=== PATIENT | female | born 1960 | race Caucasian/White ===

== ENCOUNTER → 2016-11-20 | Outpatient (CLI) | payer OTHER ==
[2016-08-27 13:26] VITALS: BP 116/70
[~2016-11-20] MED LIST: ASPI-482 PO; BIOT1CAP3 PO; BYSTOLIC10 MG PO; BYSTOLIC2.5 MG PO; IOHEXOL 350 MG/ML 100ML VIAL. IV ONE; LISI10TA2 PO; LISI2.5T PO; OMEG500C PO; PRED-220 PO; PROAIR HFA8.5 GM INH
--- NOTE | 2016-11-20 10:47 | RAD ---
Indication abdominal pain. Consider SMA syndrome. CTA targeted to the abdominal aorta and its major branches was performed. Images were reformatted in the coronal and sagittal planes. Volume rendered images were also generated and reviewed. An acute finding at either lung base is not seen. There is some scarring at the left lung base. There is a small, approximately 2 mm, pulmonary nodule peripherally in the left lower lobe, image 14 series 3. Follow-up imaging, along the lines of the Fleischner criteria, should be considered. There is some fatty infiltration of the liver. A focal mass lesion in the liver is not seen. The spleen appears unremarkable. The pancreas appears normal. No adrenal or renal anomalies are seen. There are air fluid collections in the right lower quadrant that are not clearly in bowel and are suggestive of small abscesses. One fluid collection, immediately behind the rectus muscle, is almost certainly not in a bowel loop and is compatible with a small abscess. (Findings secondary to ruptured appendix accounting for the appearance is not excluded). There is, additionally, significant dilatation and stool in distal loops of small bowel (small bowel feces sign) compatible with incidental inspissated stool in the small bowel. There is, additionally, some suggested thickening of small bowel loops in the right lower quadrant suggesting superimposed enteritis. Significant dilatation of the duodenal sweep, prior to traversing the aortic SMA junction as might be expected with an SMA syndrome is not seen. On the lateral images the angle between the abdominal aorta and the origination of the superior mesenteric artery off the aorta is not particularly narrowed. The distance between the aorta and SMA, at the level of the duodenum is borderline normal. The overall appearance is not suggestive of SMA syndrome. There is no significant narrowing at the origin of the celiac or SMA. Intestinal ischemia is not suggested on this exam. Dr. Elizalde was notified of the findings at 10:45 AM, IMPRESSION: Probable abscesses in the right lower quadrant. The sequela of ruptured appendicitis could account for the appearance. There is inspissated bowel within distal small bowel loops which are moderately dilated. A component of at least partial mechanical small bowel obstruction is thought likely. Finally superimposed associated enteritis in distal small bowel loops is suspect.. A follow-up examination, after opacification of all bowel loops with GI contrast would be useful to confirm this initial impression. Definite findings suggesting SMA syndrome are not seen Small pulmonary nodule in the left lower lobe. Follow-up imaging, along the lines of the Fleischner criteria, should be considered PQRS Compliance Statement: One or more of the following individualized dose reduction techniques were utilized for this examination: 1. Automated exposure control 2. Adjustment of the mA and/or kV according to patient size 3. Use of iterative reconstruction technique
== END | disposition home or self-care (01) ==
LOC: CT 06:49
PROVIDERS: ATTEND Surgery Vascular Surgery
DX: R10.84 Generalized abdominal pain (principal); R91.1 Solitary pulmonary nodule
CPT/HCPCS: 74174

== ENCOUNTER 2018-01-23 08:20 | Inpatient (IN) | payer OTHER ==
[2018-01-23 09:21] LABS: AMPHETAMINE/METHAMPHETAMINE NEG (NEG); BARBITURATES NEG (NEG); BENZODIAZEPINES NEG (NEG); CANNABINOIDS NEG (NEG); COCAINE NEG (NEG); METHADONE NEG (NEG); OPIATES NEG (NEG); PHENCYCLIDINE NEG (NEG)
[2018-01-23 09:28] LABS: ADD MAN DIFF? NO
[2018-01-23] MEDS ORDERED: fentaNYL PF VIAL 100 MCG/2 ML VIAL ×2 (09:32→12:52)
[2018-01-23 09:37] LABS: BASO % 0 % (0-3); EOS % 0 % (0-3); HEMOGLOBIN 11.4 g/dL (12.0-15.5); LYMPH # 0.9 x10^3/uL (1.0-4.8); LYMPH % 11 % (24-48); MEAN CORPUSCULAR HEMOGLOBIN 37 pg (25-35); MEAN CORPUSCULAR HGB CONC 35 g/dL (31-37); MEAN CORPUSCULAR VOLUME 107 fL (79-100); MONO # 0.6 x10^3/uL (0.0-1.1); MONO % 8 % (0-9); NEUT # 6.6 x10^3uL (1.8-7.7); NEUT % 81 % (31-73); PLATELET COUNT 173 x10^3/uL (140-400); RED BLOOD COUNT 3.08 x10^6/uL (3.50-5.40); RED CELL DISTRIBUTION WIDTH 14.9 % (11.5-14.5); WHITE BLOOD COUNT 8.2 x10^3/uL (4.0-11.0)
[2018-01-23] MEDS: fentaNYL PF VIAL 100 MCG/2 ML VIAL IV ×2 (09:37→15:21)
[2018-01-23 09:38] LABS: BILIRUBIN,URINE NEGATIVE (NEG); CLARITY,URINE CLEAR; COLOR,URINE YELLOW; GLUCOSE,URINE NEGATIVE (NEG); NITRITE,URINE NEGATIVE (NEG); PH,URINE 5.5; PROTEIN,URINE NEGATIVE (NEG-TRACE); UROBILINOGEN,URINE 0.2 mg/dL (0.2 mg/dL)
[2018-01-23 09:54] LABS: ETHANOL 133 mg/dL (0-10); TROPONINI < 0.017 ng/mL (0.000-0.055)
[2018-01-23 09:56] LABS: THYROID STIM HORMONE (TSH) 1.657 uIU/mL (0.358-3.74)
[2018-01-23 10:01] LABS: BACTERIA,URINE FEW /HPF (0-FEW); RBC,URINE RARE /HPF (0-2); SQUAMOUS EPITHELIAL CELL,UR FEW /LPF; WBC,URINE RARE /HPF (0-4)
[2018-01-23 10:06] LABS: CKMB INDEX 0.3 % (0-4); CKMB MASS 1.8 ng/mL (0.0-3.6); CREATINE KINASE 687 U/L (26-192)
[2018-01-23 10:06] LABS: NT-PRO BNP 349 pg/mL (0-124)
[2018-01-23 10:15] LABS: ANION GAP 17 (6-14); BLOOD UREA NITROGEN 8 mg/dL (7-20); CALCIUM 8.5 mg/dL (8.5-10.1); CARBON DIOXIDE 21 mmol/L (21-32); CHLORIDE 99 mmol/L (98-107); CREATININE 0.6 mg/dL (0.6-1.0); GFR 102.3; GLUCOSE 105 mg/dL (70-99); POTASSIUM 4.3 mmol/L (3.5-5.1); SODIUM 137 mmol/L (136-145)
[2018-01-23 10:21] LABS: ALBUMIN 3.3 g/dL (3.4-5.0); ALK PHOS 145 U/L (46-116); ALT (SGPT) 30 U/L (14-59); AST (SGOT) 36 U/L (15-37); DIRECT BILIRUBIN 0.1 mg/dL (0.0-0.2); MAGNESIUM 1.7 mg/dL (1.8-2.4); TOTAL BILIRUBIN 0.4 mg/dL (0.2-1.0); TOTAL PROTEIN 6.9 g/dL (6.4-8.2)
[2018-01-23 10:24] LABS: ETHANOL, URINE POS (NEG)
[2018-01-23] MEDS ORDERED: ONDANSETRON PF 4 MG/2 ML VIAL. IV ×3 (10:45→15:30)
[2018-01-23] MEDS ORDERED: fentaNYL PF VIAL 100 MCG/2 ML VIAL IV ×4 (10:45→15:30)
[2018-01-23] MEDS: IV DEXTROSE 5 %-0.45 % NACL 1,000 ML IV (11:26)
[2018-01-23] MEDS ORDERED: SEVOFLURANE 61 TO 120 MINUTES. IH (12:52)
[2018-01-23] MEDS ORDERED: PROPOFOL 20 ML IV (12:52)
[2018-01-23] MEDS ORDERED: DEXAMETHASONE SOD PHOS 20 MG/5 ML VIAL. (12:53)
[2018-01-23] MEDS ORDERED: FAMOTIDINE 20 MG/2 ML VIAL (12:53)
[2018-01-23] MEDS ORDERED: ONDANSETRON PF 4 MG/2 ML VIAL. (12:53)
[2018-01-23] MEDS ORDERED: PHENYLEPHRINE 10 MG/ML VIAL. (12:55)
[2018-01-23] MEDS: IV RINGERS,LACTATED 1000ML 1,000 ML IV ×2 (13:45→15:28)
[2018-01-23] MEDS ORDERED: DEXTROSE 50% 25 GM / 50ML DISP.SYRIN. IV (15:30)
[2018-01-23] MEDS ORDERED: PROCHLORPERAZINE 10 MG/2 ML VIAL. IV (15:30)
[2018-01-23] MEDS ORDERED: oxyCODONE IR 5 MG TABLET PO (15:30)
[2018-01-23] MEDS ORDERED: POLYETHYLENE GLYCOL 3350 17 GM PACKET. PO (15:30)
[2018-01-23] MEDS ORDERED: MORPHINE SULFATE 4 MG/ML DISP.SYRIN. IV ×2 (15:30)
[2018-01-23] MEDS ORDERED: HYDROcodone/APAP 7.5/325MG 1 TAB TABLET PO (15:30)
[2018-01-23] MEDS: ceFAZolin SODIUM 1 GM in IV DEXTROSE 5% 50 ML IV (15:30)
[2018-01-23] MEDS ORDERED: LIDOCAINE 1% PF 2 ML VIAL. ID (15:30)
[2018-01-23] MEDS ORDERED: MORPHINE SULFATE 2 MG/ML DISP.SYRIN. IV (15:30)
[2018-01-23] MEDS ORDERED: HALOPERIDOL LACTATE 5 MG/ML VIAL. IVP (17:30)
[2018-01-23] MEDS ORDERED: diphenhydrAMINE 50 MG/ML VIAL IVP (17:30)
[2018-01-23] MEDS ORDERED: NICOTINE POLACRILEX 2MG GUM PACKAGE of 12. BC (18:15)
[2018-01-23] MEDS ORDERED: NICOTINE 21MG PATCH. TD (18:15)
[2018-01-23] MEDS: VITAMIN B12,B9,B6 COMPLEX 1 TABLET. PO (18:47)
[2018-01-23] MEDS: SENNOSIDES/DOCUSATE 8.6/50MG TABLET. PO (18:47)
[2018-01-23] MEDS: MULTIVIT INFUSN,ADULT 4,VIT K 10 ML, THIAMINE 100 MG, FOLIC ACID 1 MG in IV RINGERS,LAC... IV (18:50)
[2018-01-23] MEDS: MAGNESIUM SULFATE 2GM 50 ML IV (18:51)
[2018-01-23] MEDS: ceFAZolin SODIUM IV Push 1 GM VIAL. IVP (18:52)
[2018-01-23] MEDS: HYDROcodone/APAP 7.5/325MG 1 TAB TABLET PO (18:58)
[2018-01-23] MEDS: APIXABAN 2.5 MG TABLET. PO (20:25)
[2018-01-23] MEDS: LORazepam 1 MG TABLET PO (21:49)
[2018-01-24] MEDS: ceFAZolin SODIUM IV Push 1 GM VIAL. IVP ×3 (01:00→08:49)
[2018-01-24] MEDS: IV RINGERS,LACTATED 1000ML 1,000 ML IV (02:20)
[2018-01-24] MEDS ORDERED: MAGNESIUM HYDROXIDE 2,400 MG/30 ML ORAL.SUSP. PO (06:00)
[2018-01-24 06:51] LABS: ADD MAN DIFF? NO
[2018-01-24 06:59] LABS: BASO % 0 % (0-3); EOS % 0 % (0-3); HEMATOCRIT 21.9 % (36.0-47.0); HEMOGLOBIN 7.7 g/dL (12.0-15.5); LYMPH # 1.6 x10^3/uL (1.0-4.8); LYMPH % 31 % (24-48); MEAN CORPUSCULAR HEMOGLOBIN 38 pg (25-35); MEAN CORPUSCULAR HGB CONC 35 g/dL (31-37); MEAN CORPUSCULAR VOLUME 107 fL (79-100); MONO # 0.7 x10^3/uL (0.0-1.1); MONO % 14 % (0-9); NEUT # 2.9 x10^3uL (1.8-7.7); NEUT % 55 % (31-73); PLATELET COUNT 116 x10^3/uL (140-400); RED BLOOD COUNT 2.04 x10^6/uL (3.50-5.40); RED CELL DISTRIBUTION WIDTH 14.7 % (11.5-14.5); WHITE BLOOD COUNT 5.2 x10^3/uL (4.0-11.0)
[2018-01-24 07:14] LABS: ALBUMIN 2.5 g/dL (3.4-5.0); ALBUMIN/GLOBULIN RATIO 0.8 (1.0-1.7); ALK PHOS 104 U/L (46-116); ALT (SGPT) 20 U/L (14-59); ANION GAP 9 (6-14); AST (SGOT) 23 U/L (15-37); BLOOD UREA NITROGEN 9 mg/dL (7-20); BUN/CREATININE RATIO 15 (6-20); CALCIUM 8.2 mg/dL (8.5-10.1); CARBON DIOXIDE 27 mmol/L (21-32); CHLORIDE 102 mmol/L (98-107); CREATININE 0.6 mg/dL (0.6-1.0); GFR 102.3; POTASSIUM 4.5 mmol/L (3.5-5.1); SODIUM 138 mmol/L (136-145); TOTAL BILIRUBIN 0.4 mg/dL (0.2-1.0); TOTAL PROTEIN 5.7 g/dL (6.4-8.2)
[2018-01-24 07:21] LABS: GLUCOSE 112 mg/dL (70-99)
[2018-01-24] MEDS: CHOLECALCIFEROL (VITAMIN D3) 5,000 UNIT CAPSULE PO (08:48)
[2018-01-24] MEDS: LORazepam 1 MG TABLET PO ×2 (08:48→20:55)
[2018-01-24] MEDS: LISINOPRIL 5 MG TABLET. PO (08:48)
[2018-01-24] MEDS: VITAMIN B12,B9,B6 COMPLEX 1 TABLET. PO (08:48)
[2018-01-24] MEDS: MULTIVITAMIN with MINERAL TABLET. PO (08:49)
[2018-01-24] MEDS: HYDROcodone/APAP 7.5/325MG 1 TAB TABLET PO ×2 (08:49→20:55)
[2018-01-24] MEDS: SENNOSIDES/DOCUSATE 8.6/50MG TABLET. PO (08:49)
[2018-01-24] MEDS: ASPIRIN ENTERIC COATED 81 MG TABLET.DR. PO (08:49)
[2018-01-24] MEDS: APIXABAN 2.5 MG TABLET. PO ×2 (09:00→19:51)
[2018-01-24] MEDS: ANTI-COAG MONITOR BY PHARMACY. MC (11:30)
[2018-01-24] MEDS: FLU VACC QS2017-18 (36MOS+)/PF 0.5 ML SYRINGE. VAX IM (12:13)
[2018-01-24] MEDS ORDERED: BISACODYL 10 MG SUPP.RECT. PR (16:00)
[2018-01-25] MEDS: HYDROcodone/APAP 7.5/325MG 1 TAB TABLET PO ×2 (01:36→20:59)
[2018-01-25 05:06] LABS: ADD MAN DIFF? NO
[2018-01-25 05:15] LABS: BASO % 0 % (0-3); EOS % 0 % (0-3); LYMPH % 42 % (24-48); MEAN CORPUSCULAR HEMOGLOBIN 38 pg (25-35); MEAN CORPUSCULAR HGB CONC 35 g/dL (31-37); MEAN CORPUSCULAR VOLUME 109 fL (79-100); MONO # 0.5 x10^3/uL (0.0-1.1); MONO % 10 % (0-9); NEUT # 2.3 x10^3uL (1.8-7.7); NEUT % 48 % (31-73); PLATELET COUNT 124 x10^3/uL (140-400); RED BLOOD COUNT 1.82 x10^6/uL (3.50-5.40); RED CELL DISTRIBUTION WIDTH 14.7 % (11.5-14.5); WHITE BLOOD COUNT 4.8 x10^3/uL (4.0-11.0)
[2018-01-25 05:28] LABS: HEMATOCRIT 19.8 % (36.0-47.0); HEMOGLOBIN 6.9 g/dL (12.0-15.5)
[2018-01-25 05:39] LABS: ALBUMIN 2.3 g/dL (3.4-5.0); ALBUMIN/GLOBULIN RATIO 0.7 (1.0-1.7); ALK PHOS 104 U/L (46-116); ALT (SGPT) 17 U/L (14-59); ANION GAP 5 (6-14); AST (SGOT) 25 U/L (15-37); BLOOD UREA NITROGEN 9 mg/dL (7-20); BUN/CREATININE RATIO 15 (6-20); CALCIUM 8.3 mg/dL (8.5-10.1); CARBON DIOXIDE 31 mmol/L (21-32); CHLORIDE 104 mmol/L (98-107); CREATININE 0.6 mg/dL (0.6-1.0); GFR 102.3; GLUCOSE 94 mg/dL (70-99); POTASSIUM 3.9 mmol/L (3.5-5.1); SODIUM 140 mmol/L (136-145); TOTAL BILIRUBIN 0.4 mg/dL (0.2-1.0); TOTAL PROTEIN 5.5 g/dL (6.4-8.2)
[2018-01-25] MEDS: CHOLECALCIFEROL (VITAMIN D3) 5,000 UNIT CAPSULE PO (08:25)
[2018-01-25] MEDS: SENNOSIDES/DOCUSATE 8.6/50MG TABLET. PO (08:25)
[2018-01-25] MEDS: VITAMIN B12,B9,B6 COMPLEX 1 TABLET. PO (08:25)
[2018-01-25] MEDS: MULTIVITAMIN with MINERAL TABLET. PO (08:26)
[2018-01-25] MEDS: APIXABAN 2.5 MG TABLET. PO ×2 (08:26→21:00)
[2018-01-25] MEDS: ASPIRIN ENTERIC COATED 81 MG TABLET.DR. PO (08:26)
[2018-01-25] MEDS: LORazepam 1 MG TABLET PO ×2 (08:26→20:59)
[2018-01-25] MEDS: LISINOPRIL 5 MG TABLET. PO (08:27)
[2018-01-25 09:17] LABS: IMMEDIATE SPIN CROSSMATCH 1 2
[2018-01-25] MEDS ORDERED: ACETAMINOPHEN 325 MG TABLET. PO (09:30)
[2018-01-25] MEDS ORDERED: diphenhydrAMINE ORAL ELIXIR 12.5 MG/5 ML ML PO (09:30)
[2018-01-25] MEDS: FOLIC ACID 1 MG TABLET. PO (12:18)
[2018-01-25] MEDS: THIAMINE 100 MG TABLET. PO (12:19)
[2018-01-25 19:20] LABS: HEMATOCRIT 29.4 % (36.0-47.0); MEAN CORPUSCULAR HGB CONC 34 g/dL (31-37)
[2018-01-26] MEDS: SENNOSIDES/DOCUSATE 8.6/50MG TABLET. PO (08:42)
[2018-01-26] MEDS: LORazepam 1 MG TABLET PO ×2 (08:42→20:42)
[2018-01-26] MEDS: FOLIC ACID 1 MG TABLET. PO (08:42)
[2018-01-26] MEDS: THIAMINE 100 MG TABLET. PO (08:42)
[2018-01-26] MEDS: MULTIVITAMIN with MINERAL TABLET. PO (08:42)
[2018-01-26] MEDS: LISINOPRIL 5 MG TABLET. PO (08:43)
[2018-01-26] MEDS: ASPIRIN ENTERIC COATED 81 MG TABLET.DR. PO (08:43)
[2018-01-26] MEDS: VITAMIN B12,B9,B6 COMPLEX 1 TABLET. PO (08:56)
[2018-01-26] MEDS: APIXABAN 2.5 MG TABLET. PO ×2 (09:00→20:38)
[2018-01-26] MEDS ORDERED: CHOLECALCIFEROL (VITAMIN D3) 5,000 UNIT CAPSULE PO (09:00)
[2018-01-26] MEDS: CHOLECALCIFEROL (VITAMIN D3) 5,000 UNIT CAPSULE PO (09:01)
[2018-01-26] MEDS: HYDROcodone/APAP 7.5/325MG 1 TAB TABLET PO ×2 (09:43→20:43)
[2018-01-26 12:32] LABS: ADD MAN DIFF? NO
[2018-01-26 12:45] LABS: BASO % 1 % (0-3); EOS % 1 % (0-3); HEMATOCRIT 27.8 % (36.0-47.0); HEMOGLOBIN 9.5 g/dL (12.0-15.5); LYMPH # 1.7 x10^3/uL (1.0-4.8); LYMPH % 28 % (24-48); MEAN CORPUSCULAR HEMOGLOBIN 34 pg (25-35); MEAN CORPUSCULAR HGB CONC 34 g/dL (31-37); MEAN CORPUSCULAR VOLUME 98 fL (79-100); MONO # 0.5 x10^3/uL (0.0-1.1); MONO % 9 % (0-9); NEUT # 3.8 x10^3uL (1.8-7.7); NEUT % 62 % (31-73); PLATELET COUNT 186 x10^3/uL (140-400); RED BLOOD COUNT 2.84 x10^6/uL (3.50-5.40); RED CELL DISTRIBUTION WIDTH 25.1 % (11.5-14.5); WHITE BLOOD COUNT 6.2 x10^3/uL (4.0-11.0)
[2018-01-26 12:51] LABS: ANION GAP 11 (6-14); BLOOD UREA NITROGEN 6 mg/dL (7-20); CALCIUM 8.8 mg/dL (8.5-10.1); CARBON DIOXIDE 28 mmol/L (21-32); CHLORIDE 100 mmol/L (98-107); CREATININE 0.6 mg/dL (0.6-1.0); GFR 102.3; GLUCOSE 106 mg/dL (70-99); POTASSIUM 3.3 mmol/L (3.5-5.1); SODIUM 139 mmol/L (136-145)
[2018-01-27 08:31] LABS: ADD MAN DIFF? NO
[2018-01-27] MEDS: LORazepam 1 MG TABLET PO (08:43)
[2018-01-27] MEDS: VITAMIN B12,B9,B6 COMPLEX 1 TABLET. PO (08:43)
[2018-01-27] MEDS: CHOLECALCIFEROL (VITAMIN D3) 5,000 UNIT CAPSULE PO (08:43)
[2018-01-27] MEDS: HYDROcodone/APAP 7.5/325MG 1 TAB TABLET PO (08:43)
[2018-01-27] MEDS: MULTIVITAMIN with MINERAL TABLET. PO (08:44)
[2018-01-27] MEDS: SENNOSIDES/DOCUSATE 8.6/50MG TABLET. PO (08:44)
[2018-01-27] MEDS: LISINOPRIL 5 MG TABLET. PO (08:44)
[2018-01-27] MEDS: ASPIRIN ENTERIC COATED 81 MG TABLET.DR. PO (08:44)
[2018-01-27] MEDS: FOLIC ACID 1 MG TABLET. PO (08:44)
[2018-01-27] MEDS: THIAMINE 100 MG TABLET. PO (08:44)
[2018-01-27] MEDS: APIXABAN 2.5 MG TABLET. PO (09:00)
[2018-01-27 09:01] LABS: ANION GAP 8 (6-14); BLOOD UREA NITROGEN 7 mg/dL (7-20); CALCIUM 8.9 mg/dL (8.5-10.1); CARBON DIOXIDE 30 mmol/L (21-32); CHLORIDE 102 mmol/L (98-107); CREATININE 0.5 mg/dL (0.6-1.0); GFR 126.3; GLUCOSE 93 mg/dL (70-99); POTASSIUM 3.7 mmol/L (3.5-5.1); SODIUM 140 mmol/L (136-145)
[2018-01-27 09:39] LABS: BASO % 0 % (0-3); EOS # 0.1 x10^3/uL (0.0-0.7); EOS % 2 % (0-3); HEMATOCRIT 27.8 % (36.0-47.0); HEMOGLOBIN 9.4 g/dL (12.0-15.5); LYMPH # 1.9 x10^3/uL (1.0-4.8); LYMPH % 32 % (24-48); MEAN CORPUSCULAR HEMOGLOBIN 34 pg (25-35); MEAN CORPUSCULAR HGB CONC 34 g/dL (31-37); MEAN CORPUSCULAR VOLUME 99 fL (79-100); MONO # 0.7 x10^3/uL (0.0-1.1); MONO % 11 % (0-9); NEUT # 3.3 x10^3uL (1.8-7.7); NEUT % 55 % (31-73); PLATELET COUNT 214 x10^3/uL (140-400); RED BLOOD COUNT 2.81 x10^6/uL (3.50-5.40); RED CELL DISTRIBUTION WIDTH 24.6 % (11.5-14.5)
[2018-01-27 12:12] LABS: ANISOCYTOSIS PRESENT; PLT ESTIMATE ADEQUATE (ADEQUATE); POIKILOCYTOSIS PRESENT; POLYCHROMASIA PRESENT; WHITE BLOOD COUNT 5.9 x10^3/uL (4.0-11.0)
[2018-01-27] MEDS: ANTI-COAG MONITOR BY PHARMACY. MC (14:00)
== END 2018-01-27 17:30 | disposition home health service (06) | DRG 481 ==
LOC: ER 08:20 → 4 NORTH 09:00
PROC: 0QS606Z Reposition Right Upper Femur with Intramedullary Internal Fixation Device, Open Approach (ICD-10-PCS; principal; 2018-01-23 13:30)
PROC: 30233N1 Transfusion of Nonautologous Red Blood Cells into Peripheral Vein, Percutaneous Approach (ICD-10-PCS; 2018-01-23 13:45)
DX: S72.21XA Displaced subtrochanteric fracture of right femur, initial encounter for closed fracture (principal); Z68.1 Body mass index [BMI] 19.9 or less, adult; D53.9 Nutritional anemia, unspecified; D75.89 Other specified diseases of blood and blood-forming organs; F10.10 Alcohol abuse, uncomplicated; F17.210 Nicotine dependence, cigarettes, uncomplicated; I10 Essential (primary) hypertension; W18.09XA Striking against other object with subsequent fall, initial encounter; Z88.8 Allergy status to other drugs, medicaments and biological substances; Y93.89 Activity, other specified; Y92.89 Other specified places as the place of occurrence of the external cause; Y99.8 Other external cause status; Z82.49 Family history of ischemic heart disease and other diseases of the circulatory system
CPT/HCPCS: 29505; 36415; 51702; 71045; 73502; 73552; 76000; 80048; 80053; 80076; 80307; 81001; 82306; 82553; 83735; 83880; 84443; 84484; 85014; 85018; 85025; 86850; 86900; 86901; 86920; 90686; 93005; 96374; 97110-GP; 97116-GP; 97161-GP; 97166-GO; 97530-GO; 97535-GO; 99285-25; C1713; C1887; G0480; J0690; J1100; J2405; J2704; J3010; J3475; J7120; P9016; S0028

== ENCOUNTER 2021-07-07 15:37 | Emergency (ER) | payer OTHER ==
[~2021-07-07] VITALS: Ht 160 cm; Wt 52.0 kg
[~2021-07-07 15:37] MED LIST changes: +ALBU2.5V8 INH; -IOHEXOL 350 MG/ML 100ML VIAL. IV ONE; +LISI-517 PO; +LISI10TA16 PO; -LISI10TA2 PO; -LISI2.5T PO; +LISI2.5T12 PO; +OXYC1TAB7 PO; -PROAIR HFA8.5 GM INH
--- NOTE | 2021-07-07 16:22 | PHYS DOC ---
Past Medical History Past Medical History: Hypertension Past Surgical History: No Surgical History Additional Past Surgical Histo: right elbow surgery, "BELLY SX" Smoking Status: Current Every Day Smoker Alcohol Use: None Drug Use: None General Adult EDM: Chief Complaint: MECHANICAL FALL HPI: HPI: Patient is a 60 year old female who was brought here by EMS from home due to low back pain. Patient says she tripped and fell on her low back 3 days ago, she had had some pain since. Patient denies any head or neck injury. Patient has been able to walk only with pain. Patient denies any hip pain. Patient denies any lower extremity pain. Patient denies any bowel or bladder incontinence. Review of Systems: Review of Systems: Constitutional: Denies fever or chills. [] Eyes: Denies change in visual acuity. [] HENT: Denies nasal congestion or sore throat. [] Respiratory: Denies cough or shortness of breath. [] Cardiovascular: Denies chest pain or edema. [] GI: Denies abdominal pain, nausea, vomiting, bloody stools or diarrhea. [] : Denies dysuria. [] Musculoskeletal: Positive for low back pain. Integument: Denies rash. [] Neurologic: Denies headache, focal weakness or sensory changes. [] Endocrine: Denies polyuria or polydipsia. [] Lymphatic: Denies swollen glands. [] Psychiatric: Denies depression or anxiety. [] Heart Score: C/O Chest Pain: N/A Risk Factors: Risk Factors: DM, Current or recent (<one month) smoker, HTN, HLP, family history of CAD, obesity. Risk Scores: Score 0 - 3: 2.5% MACE over next 6 weeks - Discharge Home Score 4 - 6: 20.3% MACE over next 6 weeks - Admit for Clinical Observation Score 7 - 10: 72.7% MACE over next 6 weeks - Early Invasive Strategies Allergies: Allergies: Allergies Coded Allergies Type Severity Reaction Last Updated Verified naproxen Allergy Intermediate 07/07/21 Yes Physical Exam: PE: Constitutional: Well developed, well nourished, no acute distress, non-toxic appearance. [] HENT: Normocephalic, atraumatic, bilateral external ears normal, oropharynx moist, no oral exudates, nose normal. [] Eyes: PERRLA, EOMI, conjunctiva normal, no discharge. [] Neck: Normal range of motion, no tenderness, supple, no stridor. [] Cardiovascular:Heart rate regular rhythm, no murmur [] Lungs & Thorax: Bilateral breath sounds clear to auscultation [] Abdomen: Bowel sounds normal, soft, no tenderness, no masses, no pulsatile masses. [] Skin: Warm, dry, no erythema, no rash. [] Back: There is tenderness to palpation at L4 and L5 area, no contusion noted, no bony step-off. Pelvic is stable, nontender to palpation Extremities: No tenderness, no cyanosis, no clubbing, ROM intact, no edema. [] Neurologic: Alert and oriented X 3, normal motor function, normal sensory function, no focal deficits noted. [] Psychologic: Affect normal, judgement normal, mood normal. [] Current Patient Data: Vital Signs: Vital Signs Date Time Temp Pulse Resp B/P (MAP) Pulse Ox O2 Delivery O2 Flow Rate FiO2 07/07/21 15:46 98.7 97 15 173/87 98 Room Air 98.7 EKG: EKG: [] Radiology/Procedures: Radiology/Procedures: [][facility] [address] [place] [address] IMAGING REPORT Signed PATIENT: MOHINI HILL ACCOUNT: [id number] : 1960 LOCATION: ER AGE: 60 SEX: F EXAM STATUS: PRE ER ORD. PHYSICIAN: MADDY CHOWDHURY DO REASON: FELL, LOWER BACK PAIN, PELVIC PAIN PROCEDURE: PELVIS Exam: Pelvis 1 view INDICATION: Fall, lower back pain TECHNIQUE: Frontal view of the pelvis Comparisons: None FINDINGS: Diffuse osteopenia. Partial visualization of right hip fixation. No acute fracture is identified. Vascular stent noted in the upper pelvis. Visualized soft tissues are otherwise unremarkable. IMPRESSION: No acute fracture identified in the setting of diffuse osteopenia. If the patient is acutely unable to bear weight, cross-sectional imaging is recommended to better evaluate. Electronically signed by: Demetra Madden MD (07/07/2021 5:32 PM) [facility] DICTATED and SIGNED BY: DEMETRA MADDEN MD DATE: 07/07/21 [id number] [facility] [address] [place] [address] IMAGING REPORT Signed PATIENT: MOHINI HILL ACCOUNT: [id number] : 1960 LOCATION: ER AGE: 60 SEX: F EXAM STATUS: PRE ER ORD. PHYSICIAN: MADDY CHOWDHURY DO REASON: FELL, LOWER BACK PAIN, PELVIC PAIN PROCEDURE: LUMBAR SPINE 2-3V Exam: Lumbar spine 3 views INDICATION: Fall, lower back pain TECHNIQUE: Frontal, lateral views of the lumbar spine with spot magnification view of the lumbosacral junction Comparisons: None FINDINGS: Vertebral body heights and alignment are well-maintained. Mild spondylotic changes lumbar spine with facet arthropathy predominantly in t he lower lumbar spine. Extensive vascular calcifications are noted. Soft tissues are otherwise unremarkable. IMPRESSION: Mild spondylotic changes in the lumbar spine as described above Electronically signed by: Demetra Madden MD (07/07/2021 5:34 PM) [facility] DICTATED and SIGNED BY: DEMETRA MADDEN MD DATE: 07/07/[id number] 0 Course & Med Decision Making: Course & Med Decision Making Pertinent Labs and Imaging studies reviewed. (See chart for details) Patient is a 60-year-old female who present to ER due to low back pain after she fell 3 days ago. Examination did not show any contusion noted externally, x- ray did not show any evidence of injury. Patient was discharged home in stable condition. Josephine Disclaimer: Josephine Disclaimer: This electronic medical record was generated, in whole or in part, using a voice recognition dictation system. Departure Departure Impression: Primary Impression: Back pain Disposition: HOME / SELF CARE / HOMELESS Condition: IMPROVED Referrals: STEVE DELGADILLO APRN (PCP) follow up with your doctor this week. Patient Instructions: Back Pain, Adult Additional Instructions: Thank you for visiting our Emergency Department. We appreciate you trusting us with your care. If any additional problems come up don't hesitate to return to visit us. Please follow up with your primary care provider so they can plan additional care if needed and know about the problem that you had. If symptoms worsen come back to the Emergency Department. Any concerning symptoms that start such as chest pain, shortness of air, weakness or numbness on one side of the body, running high fevers or any other concerning symptoms return to the ER. MADDY CHOWDHURY DO Jul 07, 2021 16:22
--- NOTE | 2021-07-07 17:34 | RAD ---
Exam: Pelvis 1 view INDICATION: Fall, lower back pain TECHNIQUE: Frontal view of the pelvis Comparisons: None FINDINGS: Diffuse osteopenia. Partial visualization of right hip fixation. No acute fracture is identified. Vas cular stent noted in the upper pelvis. Visualized soft tissues are otherwise unremarkable. IMPRESSION: No acute fracture identified in the setting of diffuse osteopenia. If the patient is acutely unable t o bear weight, cross-sectional imaging is recommended to better evaluate. Electronically signed by: Demetra Berkowitz MD (07/07/2021 5:32 PM) [facility]
--- NOTE | 2021-07-07 17:36 | RAD ---
Exam: Lumbar spine 3 views INDICATION: Fall, lower back pain TECHNIQUE: Frontal, lateral views of the lumbar spine with spot magnification view of the lumbosacral junction Comparisons: None FINDINGS: Vertebral body heights and alignment are well-maintained. Mild spondylotic changes lumbar spine with facet arthropathy predominantly in the lower lumbar spine. Extensive vascular calcifications are noted. Soft tissues are otherwise unremarkable. IMPRESSION: Mild spondylotic changes in the lumbar spine as described above Electronically signed by: Demetra Berkowitz MD (07/07/2021 5:34 PM) [facility]
[2021-07-07] MEDS ORDERED: HYDROcodone/APAP 5/325MG 1 TAB TABLET PO ONE (18:00)
[2021-07-07] MEDS ORDERED: HYDROcodone/APAP 5/325MG 1 TAB TABLET ONE (18:10)
[2021-07-07 18:32] VITALS: BP 152/84
== END 2021-07-07 19:12 | disposition home or self-care (01) ==
LOC: ER 15:37
DX: M54.5 Low back pain (principal); G89.11 Acute pain due to trauma; I10 Essential (primary) hypertension; F17.200 Nicotine dependence, unspecified, uncomplicated; Z88.5 Allergy status to narcotic agent; W01.0XXA Fall on same level from slipping, tripping and stumbling without subsequent striking against object, initial encounter; Y93.89 Activity, other specified; Y92.89 Other specified places as the place of occurrence of the external cause; Y99.8 Other external cause status
CPT/HCPCS: 72100; 72170; 99284